=== PATIENT | male | born 1965 | race Caucasian/White ===

== ENCOUNTER 2016-10-07 10:24 | Day surgery (SDC) | payer MEDICAID, OTHER ==
[~2016-10-07 10:24] MED LIST: KETOROLAC TROMETHAMINE 0.45% 4 DROP/0.4 ML DROPERETTE OD PRN
[2016-10-07] MEDS ORDERED: LIDOCAINE 1% INJ-PF (10 MG/ML) 30 ML SDV ONE (10:32)
[2016-10-07] MEDS ORDERED: PHENYLEPHRINE/KETOROLAC 1%-0.3% 4 ML VIAL ONE (10:32)
[2016-10-07] MEDS ORDERED: CHONDR SU A NA/HYALUR INTRAOC KIT (SURGICARE) ONE (10:32)
[2016-10-07] MEDS ORDERED: TRYPAN BLUE 0.06 % OPH SOLN 0.5 ML DISP.SYRIN ONE ×2 (10:32→11:16)
[2016-10-07] MEDS: CYCLOPENTOLATE 0.2%/PHENYLEPHRINE 1% OPH SOLN 2 ML OD PRN ×3 (10:59→11:19)
[2016-10-07] MEDS: TROPICAMIDE 1% OPH SOLN 3 ML OD PRN ×3 (10:59→11:19)
[2016-10-07] MEDS: BESIFLOXACIN HCL 0.6% OPH SUSP 5 ML BOTTLE OD PRN ×3 (10:59→12:11)
[2016-10-07] MEDS: TETRACAINE HCL 0.5% OPH SOLN 2 ML OD PRN ×3 (11:00→11:45)
[2016-10-07] MEDS ORDERED: ALBUTEROL SULFATE 0.083% NEB 2.5 MG/3 ML AMPUL NEB ONE (11:09)
[2016-10-07] MEDS ORDERED: MIDAZOLAM 2 MG/2 ML INJ ONE ×2 (11:12)
[2016-10-07] MEDS ORDERED: PROPOFOL INJ 200 MG/20 ML VIAL IV ONE (11:14)
[2016-10-07] MEDS ORDERED: BUPIVACAINE HCL 0.75% INJ/PF (7.5 MG/1 ML) 10 ML SDV ONE (11:16)
[2016-10-07] MEDS ORDERED: LIDOCAINE 2% INJ-PF (20 MG/ML) 10 ML AMPUL ONE ×2 (11:16→11:34)
[2016-10-07] MEDS ORDERED: HYALURONIDASE INJ 150 UNIT/1 ML VIAL ONE (11:17)
[2016-10-07] MEDS ORDERED: TOBRAMYCIN SULFATE/DEXAMETH OPH OINTMENT 3.5 GM ONE (12:09)
--- NOTE | 2016-10-11 12:33 | [facility] OPERATIVE REPORT E ---
[facility] Report NAME: SHIRA MCFARLAND AGE: 50Y DATE OF SURGERY: 10/07/2016 ROOM: PREOPERATIVE DIAGNOSIS: Cataract right eye, mature. POSTOPERATIVE DIAGNOSIS: Cataract right eye, mature. OPERATION: Complex cataract extraction with use of trypan blue dye due to poor visualization of the anterior capsule. SURGEON: RANDELL FERRELL M.D. ANESTHESIA: Topical plus retrobulbar block of 2% lidocaine with 0.75% Marcaine in a 50/50 mixture with Vitrase. BLOOD LOSS: Less than 2 mL. PROCEDURE: After obtaining appropriate consent, the patient's right eye was prepped and draped in sterile fashion as well as the surgeon in a sterile manner and cataract surgery was started. First a paracentesis blade was used to make a small side-port incision. Viscoelastic was used to inflate the anterior chamber. Next a 2.4 mm incision was made with the paracentesis blade. A continuous capsulorrhexis incision was made using a cystotome and Utrata forceps. Following this hydrodissection was carried out to make the lens fully loose and mobile and it was rotated 90 degrees. Following this, a vrwjtu-fua-rncqdaq technique was used to phacoemulsify the lens with a CDE of 13.39. The remaining cortex was removed with irrigation/aspiration. Provisc was instilled into the capsular bag to inflate the bag. A SN60WF, 22.0 diopter lens was placed. The remaining viscoelastic material was removed with irrigation/aspiration. Following this, a 10-0 nylon suture was used to close the incision and it was found to be watertight. Vigamox was instilled in the eye and a protective shield was placed over the eye. The patient returned to the postoperative recovery in stable condition. Due to it being a mature white cataract, there was poor visualization of the anterior capsule, so trypan blue dye was used to stain the anterior capsule prior to performing the capsulorrhexis. DICTATING PHYSICIAN: RANDELL FERRELL M.D. [id number] PHY#: [id number] ID: [id number] JOB#: [id number] ACCT: [id number] cc:RANDELL FERRELL M.D. >
--- NOTE | 2016-10-11 12:34 | [facility] DISCHARGE SUMMARY E ---
[facility] Discharge Summary NAME: SHIRA MCFARLAND AGE: 50Y ADMITTED: 10/07/2016 DISCHARGED: 10/07/2016 HOSPITAL COURSE: This is a 50-year-old male who underwent complex cataract extraction of the right eye with trypan blue dye due to maturity of lens. DIAGNOSIS: Mature cataract, right eye. INDICATIONS: He underwent surgery because he was unable to make out facial features and decreased vision. DISCHARGE INSTRUCTIONS: regular diet and no bending at the waist. Due to the retrobulbar block, a pressure patch after TobraDex ointment was placed. He is to leave this on until I see him for his 1 day postoperative tomorrow. DICTATING PHYSICIAN: RANDELL FERRELL M.D. [id number] PHY#: [id number] ID: [id number] JOB#: [id number] ACCT: [id number] cc:RANDELL FERRELL M.D. > MTDD
== END 2016-10-07 12:49 | disposition home or self-care (01) ==
LOC: SC 10:24
PROVIDERS: ATTEND Internal Medicine
PROC: 08RJ3JZ Replacement of Right Lens with Synthetic Substitute, Percutaneous Approach (ICD-10-PCS; principal; 2016-10-07 11:30)
DX: H25.9 Unspecified age-related cataract (principal)
CPT/HCPCS: 66982; V2632; J2250; J3490 ×6; J2704; J3470; C9447; 142